=== PATIENT | female | born 1995 | race Caucasian/White ===

== ENCOUNTER 2019-01-14 14:16 | Emergency (ER) | payer OTHER ==
[2019-01-14 14:21] VITALS: BMI 24.1
[2019-01-14 14:37] VITALS: TEMP 99.2; O2SAT 100
[2019-01-14] MEDS ORDERED: Tdap Vaccine 0.5 ml Vial (10-64 yrs) IM ONE ×2 (14:54→15:05)
--- NOTE | 2019-01-14 14:54 | C.PDOC ---
History Of Present Illness 23 y/o female pt presents to the ER c/o a laceration on her first digit right hand. Pt reports she cut her finger with a meat washer. Pt denies any other injuries, weakness, numbness and tingling. Time Seen by Provider: 01/14/19 14:39 Chief Complaint (Nursing): Abnormal Skin Integrity History Per: Patient History/Exam Limitations: no limitations Onset/Duration Of Symptoms: Hrs Current Symptoms Are (Timing): Still Present Past Medical History Reviewed: Historical Data, Nursing Documentation, Vital Signs Vital Signs: Last Vital Signs Temp 99.2 F 01/14/19 14:21 Pulse 110 H 01/14/19 14:21 Resp 20 01/14/19 14:21 BP 121/83 01/14/19 14:21 Pulse Ox 100 01/14/19 14:21 Primary Care Provider: FAMILY PROVIDER,NO Family History: States: No Known Family Hx - Social History Hx Alcohol Use: No Hx Substance Use: No - Immunization History Hx Tetanus Toxoid Vaccination: No Hx Influenza Vaccination: No Hx Pneumococcal Vaccination: No Review Of Systems Constitutional: Negative for: Weakness Cardiovascular: Negative for: Chest Pain Respiratory: Negative for: Shortness of Breath Musculoskeletal: Positive for: Hand Pain. Negative for: Arm Pain Skin: Positive for: Other (1st digit right hand laceration ). Negative for: Bruising Neurological: Negative for: Weakness, Numbness, Other (tingling) Physical Exam - Physical Exam Appears: Non-toxic, No Acute Distress Skin: Warm, Dry Head: Atraumatic, Normacephalic Eye(s): bilateral: Normal Inspection Chest: Symmetrical Cardiovascular: Rhythm Regular Respiratory: Normal Breath Sounds, No Wheezing Extremity: Normal ROM (FROM), Tenderness, Capillary Refill (<2 sec), No Deformity, No Swelling, Other (avulsed nail/fingertip laterally index ~ 5% ) Neurological/Psych: Oriented x3, Normal Speech, Normal Cognition, Normal Motor, Normal Sensation ED Course And Treatment O2 Sat by Pulse Oximetry: 100 (RA) Pulse Ox Interpretation: Normal Medical Decision Making Medical Decision Making: Plans: -- tetanus given --xeroform applied to finger and dressed --bacitracin as outpatient --follow up with hand specialist Patient verbalizes understanding and is in agreement with plan. Patient is stable for discharge. Disposition Counseled Patient/Family Regarding: Diagnosis, Need For Followup, Rx Given - Disposition Referrals: Sami Erickson MD [Staff Provider] - Disposition: HOME/ ROUTINE Disposition Time: 15:24 Condition: IMPROVED Additional Instructions: Keep wound clean and dry Remove dressing in 2 days Replace with bacitracin and bandaid Follow up with Hand specialist in 1-2 days Return to the ED if symptoms worsen Prescriptions: Bacitracin OINT 1 applic TP DAILY #1 tube Instructions: Wound Care (DC) Forms: [employer] (Yakut) - Clinical Impression Clinical Impression: Finger pain, right, Laceration of finger - PA / METEOROLOGIST IN CHARGE / Resident Statement MD/DO has reviewed & agrees with the documentation as recorded. - Scribe Statement The provider has reviewed the documentation as recorded by the Merlene Nunez Do All medical record entries made by the Scribe were at my direction and personally dictated by me. I have reviewed the chart and agree that the record accurately reflects my personal performance of the history, physical exam, medical decision making, and the department course for this patient. I have also personally directed, reviewed, and agree with the discharge instructions and disposition.
[2019-01-14 15:41] VITALS: BP 113/78; PULSE 93; RESP 18
== END 2019-01-14 15:43 | disposition home or self-care (01) ==
LOC: C.ER 14:16
DX: S61.210A Laceration without foreign body of right index finger without damage to nail, initial encounter (principal); W45.8XXA Other foreign body or object entering through skin, initial encounter; M79.644 Pain in right finger(s)